=== PATIENT | male | born 1985 | race African-American/Black ===

== ENCOUNTER 2016-06-04 11:30 | Emergency (ER) | payer SELFPAY ==
[~2016-06-04] VITALS: Ht 182.9 cm; Wt 91.0 kg
[2016-06-04 11:39] VITALS: BP 150/91
[2016-06-04 13:23] LABS: CLARITY URINE CLEAR (CLEAR); COLOR URINE YELLOW (YELLOW); GLUCOSE URINE NEGATIVE (NEGATIVE); KETONES URINE TRACE (NEGATIVE); LEUKOCYTE ESTERASE URINE NEGATIVE (NEGATIVE); NITRITE URINE NEGATIVE (NEGATIVE); OCCULT BLOOD URINE NEGATIVE (NEGATIVE); PH URINE 5.5 (4.5-8.0); PROTEIN URINE NEGATIVE (NEGATIVE); SPECIFIC GRAVITY URINE 1.032 (1.005-1.030)
== END 2016-06-04 22:00 | disposition home or self-care (01) ==
LOC: ER 19:35
DX: R31.9 Hematuria, unspecified (principal); I10 Essential (primary) hypertension
CPT/HCPCS: 81003; 99283